=== PATIENT | female | born 1975 | race Caucasian/White ===

== ENCOUNTER → 2016-08-31 | Outpatient (CLI) | payer OTHER ==
--- NOTE | 2016-08-31 14:26 | Diagnostic Imaging Report ---
PROCEDURE: US Abdomen, limited. TECHNIQUE: Multiple realtime grayscale images were obtained over the abdomen in various projections. INDICATION: Right upper quadrant pain. FINDINGS: The visualized portions of the pancreas appear unremarkable. The liver is fairly homogeneous with no focal lesion. There is hepatopetal flow in the portal vein. The gallbladder demonstrate no stones. There is no wall thickening or pericholecystic fluid. Incidental fold is seen near the gallbladder fundus. Sonographic Hernandez sign is reportedly negative. The CBD is obscured by bowel gas. The right kidney is 9.9 CM in length with no hydronephrosis or focal lesion. IMPRESSION: No gallstones or evidence of cholecystitis. Dictated by: Dictated on workstation # [id number]
== END ==
LOC: RAD 13:24
PROVIDERS: ATTEND Nurse Practitioner Family
DX: R74.8 Abnormal levels of other serum enzymes (principal); R10.11 Right upper quadrant pain
CPT/HCPCS: 76705

== ENCOUNTER 2016-10-06 05:32 | Outpatient (CLI) | payer OTHER ==
[~2016-10-06] VITALS: Ht 162.6 cm; Wt 83.5 kg
[2016-10-06] MEDS ORDERED: DEXL60CA PO (10:36)
== END 2016-10-06 10:53 ==
LOC: PREOP 05:32
PROVIDERS: ATTEND Surgery
DX: Z01.818 Encounter for other preprocedural examination (principal); R10.13 Epigastric pain

== ENCOUNTER 2016-10-10 12:19 | Day surgery (SDC) | payer OTHER ==
[~2016-10-10] VITALS: Ht 162.6 cm; Wt 83.5 kg
[~2016-10-10 12:19] MED LIST: DEXL60CA PO
[2016-10-10 12:30] VITALS: BP 131/98
[2016-10-10] MEDS ORDERED: LACTATED RINGERS 1,000 ML IV STA (12:34)
[2016-10-10] MEDS ORDERED: HURRICAINE EXT TUBE (BENZOCAINE) XX PRN (12:45)
--- NOTE | 2016-10-10 13:45 | Progress Note-Pre Operative ---
Pre-Operative Progress Note H&P Reviewed The H&P was reviewed, patient examined and no changes noted. Date Seen by Provider: Oct 10, 2016 Time Seen by Provider: 13:44 Date H&P Reviewed: Oct 10, 2016 Time H&P Reviewed: 13:44 Pre-Operative Diagnosis: gerd epigastric abdominal pain. TOBIAS HELLER DO Oct 10, 2016 1:45 pm
[2016-10-10] MEDS ORDERED: proPOfol 200 MG/20 ML (DIPRIVAN) VIAL IV ONE (14:14)
[2016-10-10] MEDS ORDERED: MIDAZOLAM 2 MG/2 ML (VERSED) VIAL ONE (14:14)
[2016-10-10] MEDS ORDERED: HURRICAINE EXT TUBE (BENZOCAINE) ONE (14:15)
[2016-10-10] MEDS ORDERED: SUCR1TAB36 PO (14:33)
[2016-10-10] MEDS ORDERED: PANT40TA2 PO (14:33)
--- NOTE | 2016-10-10 14:34 | Discharge Inst-Simple/Standard ---
Discharge Inst-Standard Discharge Medications New, Converted or Re-Newed RX: RX on Chart Patient Instructions/Follow Up Plan of Care/Instructions/FU: Follow up with Dr. Munguai in 2 - 3 weeks Take medication as directed. Stop dexilant. Activity as Tolerated: Yes Discharge Diet: No Restrictions CITLALLI BAILEY APRN Oct 10, 2016 14:34
[2016-10-10 14:50] VITALS: BP 116/74
--- NOTE | 2016-10-10 14:50 | Progress Note-Post Operative ---
Post-Operative Progess Note Surgeon (s)/Bulk Mail Technician (s) Surgeon TOBIAS HELLER DO Bulk Mail Technician: na Pre-Operative Diagnosis gerd epigastric abdominal pain. Post-Operative Diagnosis gastritis Procedure & Operative Findings Date of Procedure 10/10/16 Procedure Performed/Findings egd c biopies Anesthesia Type per mda Estimated Blood Loss Estimated blood loss (mL): none Specimens/Packing Specimens Removed antrum and ge junction TOBIAS HELLER DO Oct 10, 2016 2:50 pm
[2016-10-10 15:15] VITALS: BP 128/101
[2016-10-10 15:20] VITALS: BP 128/101
--- NOTE | 2016-10-12 10:10 | OPERATIVE REPORT ---
PROCEDURE PHYSICIAN: TOBIAS HELLER DATE OF PROCEDURE: 10/10/2016 PREOPERATIVE DIAGNOSES: 1. Epigastric abdominal pain. 2. Gastroesophageal reflux disease. POSTOPERATIVE DIAGNOSIS: Gastritis. PROCEDURE: EGD with biopsies. SURGEON: Ezra. ANESTHESIA: Per MDA. ESTIMATED BLOOD LOSS: None. SPECIMENS: 1. Antrum. 2. GE junction. INDICATIONS: The patient is a 41-year-old female who had been having epigastric abdominal pain and gastroesophageal reflux disease. She was placed on Dexilant and did have some improvement. She has not taken it for approximately 2 weeks now though. She was explained risk and benefits of having EGD performed. She understands the risks and benefits and wishes to proceed with the procedure. Consent was signed on the chart. PROCEDURE: The patient was taken to the endoscopy suite, placed in the left lateral recumbent position. Timeout was performed. The scope was inserted into the mouth, down the esophagus, stomach and into the duodenum without difficulty. In the second portion of the duodenum, there were no polyps, masses, or ulcerations. The scope was slowly retracted back in the first portion of the duodenum, there is very slight erythematous changes. The scope was slowly retracted back to the stomach where it was further insufflated demonstrating classic signs of gastritis and erythematous changes. Biopsy of the antrum was obtained. The scope was retroflexed noting no other pathology besides gastritis. There are no other polyps, masses or ulcerations. The scope was returned to its normal position and slowly withdrawn into the distal esophagus. In the distal esophagus at the GE junction, there were some erythematous changes, which biopsy was obtained. The scope was then slowly retracted back noting no other pathology. The patient tolerated the procedure well without any complications. She was taken to the recovery room in stable condition. RECOMMENDATIONS: The patient will need to be on Protonix 40 mg twice a day for 2 weeks and then once per day. She will be placed on Carafate 1 gram 4 times a day. She will follow-up in the office in approximately 3 weeks. If she has worsening conditions, she should be seen at that time; otherwise, follow-up on the scheduled appointment. Job ID: [id number] Dictated Date: 10/10/2016 14:50:28 Paralegal Assistant Date: 10/12/2016 10:01:38 / jed
== END 2016-10-10 15:20 | disposition home or self-care (01) ==
LOC: ENDO 12:19
PROVIDERS: ATTEND Surgery
DX: K29.70 Gastritis, unspecified, without bleeding (principal); F17.210 Nicotine dependence, cigarettes, uncomplicated
CPT/HCPCS: 84703

== ENCOUNTER → 2017-12-17 | Outpatient (CLI) | payer MEDICAID, OTHER ==
[~2017-12-17] MED LIST changes: +CATHETER FLUSH 10 ML SYR IV PRN; +PANT40TA2 PO; +SUCR1TAB36 PO
--- NOTE | 2017-12-17 12:03 | Diagnostic Imaging Report ---
INDICATION: Right upper quadrant pain. TECHNIQUE: Patient was administered 5.0 mCi technetium 99m Choletec intravenously and imaging over the abdomen was performed. At one hour, patient ingested 8 ounces of Ensure and gallbladder ejection fraction was calculated. FINDINGS: There is homogeneous uptake of activity by the liver with prompt excretion of activity into the common duct and gallbladder. Normal passage of activity into the small bowel is seen. Gallbladder ejection fraction is lower limits of normal at 36.5%. IMPRESSION: Normal HIDA scan and gallbladder ejection fraction. Dictated by: Dictated on workstation # [id number]
== END ==
LOC: CARD 09:25
PROVIDERS: ATTEND Nurse Practitioner Family
DX: R10.11 Right upper quadrant pain (principal)
CPT/HCPCS: 78227

== ENCOUNTER 2018-02-27 13:51 | Emergency (ER) | payer MEDICAID ==
[~2018-02-27] VITALS: Ht 162.6 cm; Wt 88.9 kg
[~2018-02-27 13:51] MED LIST changes: -CATHETER FLUSH 10 ML SYR IV PRN
[2018-02-27] MEDS ORDERED: NS IV 1000 ML 1,500 ML IV ONE (15:00)
[2018-02-27] MEDS ORDERED: PIPERACILLIN SODIUM/TAZOBACTAM 4.5 GM in NS (IVPB) 100 ML IV ONE (15:00)
--- NOTE | 2018-02-27 15:03 | ED Abdominal Pain ---
General Chief Complaint: Abdominal/GI Problems Stated Complaint: ABD PAIN Source of Information: Patient, Spouse Exam Limitations: No Limitations History of Present Illness Date Seen by Provider: Feb 27, 2018 Time Seen by Provider: 14:48 Initial Comments Patient presents to ER by private conveyance from the [facility] where she says she presented because she started having abdominal pain in her bilateral lower quadrants right worse than left starting around 12:30 to 1:00 this afternoon. She left work made her at the ER. She says they did not offer her anything for pain nor take any blood or urine and informed her that since they did not have a CT scan her she should sign an AMA form and come to [place] by private conveyance. She says she has a history of the last year having some right upper quadrant tingling, movement and occasional pain that has been extensively worked up with CT scans, ultrasound, HIDA scan and nothing has been found. She has a history of endometriosis and had a laparoscopic surgery for that 18 years ago. She's had 2 C-sections on her abdomen. She still has her gallbladder and appendix intact. She's had normal bowel movements. She' s not taken anything for the pain today. She denies any fever chills present nausea but she did have a little nausea on the ride down here. Discussed the case with Dr. Malhotra in the ER at [facility] and she states that she noted the patient to be in severe distress when she got there writhing in pain and offered to do a workup labs urine pain medicine and plain films of the belly but informed the patient that she will not be able to get a CT scan and if requiring CT scan she would have transfer the patient to another ER. The patient said that they wanted to go somewhere else so she told him that have to sign AMA since she did planned worked him up and treat the patient for her pain so they signed the AMA and left. The provider did call down here and no one answered the phone so she spoke with nursing gas line installer supervisor and left a message about the patient's coming. Allergies and Home Medications Allergies Coded Allergies: No Known Drug Allergies (Unverified , 10/06/16) Home Medications Pantoprazole Sodium 40 Mg Tablet., 40 MG PO DAILY Prescribed by: CITLALLI [facility] on 10/10/16 4553 Sucralfate 1 Gm Tablet, 1 GM PO QID Prescribed by: CITLALLI GOLD on 10/10/16 1433 Patient Home Medication List Home Medication List Reviewed: Yes Review of Systems Review of Systems Constitutional: No chills, No diaphoresis EENTM: No Blurred Vision, No Double Vision Respiratory: Denies Cough, Denies Shortness of Air Cardiovascular: Denies Chest Pain, Denies Edema Gastrointestinal: Denies Abdomen Distended; Abdominal Pain; Denies Constipated , Denies Diarrhea, Denies Nausea, Denies Poor Fluid Intake Genitourinary: Denies Burning, Denies Discharge Musculoskeletal: No back pain, No joint pain Skin: No pruritus, No rash Past Flklcvq-Gmayqs-Regwms Hx Patient Social History Alcohol Use: Denies Use Recreational Drug Use: No Smoking Status: Current Everyday Smoker Type Used: Cigarettes Recent Foreign Travel: No Contact w/Someone Who Travel: No Recent Hopitalizations: No Seasonal Allergies Seasonal Allergies: No Past Medical History Section Reproductive Disorders: No Female Reproductive Disorders: Endometriosis Sexually Transmitted Disease: No HIV/AIDS: No Gastroesophageal Reflux Loss of Vision: Left Hearing Impairment: Denies Leukemia Anxiety, Depression Adverse Reaction/Blood Tranf: No Physical Exam Vital Signs Vital Signs - First Documented 02/27/18 15:00 Temp 97.6 Pulse 95 Resp 18 B/P (MAP) 103/50 (67) Pulse Ox 97 Capillary Refill : Height/Weight/BMI Height: 5'4.00" Weight: 184lbs. 0.0oz. 83.817180ml; 31.6 BMI Method: General Appearance: WD/WN, no apparent distress HEENT: PERRL/EOMI, normal ENT inspection, pharynx normal Neck: non-tender, full range of motion Respiratory: chest non-tender, lungs clear, normal breath sounds, no respiratory distress, no accessory muscle use Cardiovascular: normal peripheral pulses, regular rate, rhythm, no edema Peripheral Pulses: 2+ Radial Pulses (R), 2+ Radial Pulses (L) Gastrointestinal: normal bowel sounds, guarding; No rebound; tenderness (right lower quadrant) Extremities: normal range of motion, non-tender, normal capillary refill Neurologic/Psychiatric: alert, normal mood/affect, oriented x 3 Skin: normal color, warm/dry Focused Exam Lactate Level 02/27/18 15:26: Lactic Acid Level 1.80 Lactic Acid Level Laboratory Tests Test 02/27/18 15:26 Lactic Acid Level 1.80 MMOL/L (0.50-2.00) Progress/Results/Core Measures Results/Orders Lab Results Laboratory Tests Test 02/27/18 15:03 02/27/18 15:12 02/27/18 15:26 Range/Units Urine Color YELLOW Urine Clarity CLEAR Urine pH 6 5-9 Urine Specific [place] 1.025 H 1.016-1.022 Urine Protein 1+ H NEGATIVE Urine Glucose (UA) NEGATIVE NEGATIVE Urine Ketones NEGATIVE NEGATIVE Urine Nitrite NEGATIVE NEGATIVE Urine Bilirubin NEGATIVE NEGATIVE Urine Urobilinogen NORMAL NORMAL MG/DL Urine Leukocyte Esterase NEGATIVE NEGATIVE Urine RBC (Auto) 3+ H NEGATIVE Urine RBC 2-5 H /HPF Urine WBC 0-2 /HPF Urine Squamous Epithelial Cells 5-10 /HPF Urine Crystals NONE /LPF Urine Bacteria TRACE /HPF Urine Casts NONE /LPF Urine Mucus MODERATE H /LPF Urine Culture Indicated NO White Blood Count 16.4 H 4.3-11.0 10^3/uL Red Blood Count 4.83 4.35-5.85 10^6/uL Hemoglobin 14.5 11.5-16.0 G/DL Hematocrit 43 35-52 % Mean Corpuscular Volume 89 80-99 FL Mean Corpuscular Hemoglobin 30 25-34 PG Mean Corpuscular Hemoglobin Concent 34 32-36 G/DL Red Cell Distribution Width 15.7 H 10.0-14.5 % Platelet Count 397 130-400 10^3/uL Mean Platelet Volume 10.1 7.4-10.4 FL Neutrophils (%) (Auto) 67 42-75 % Lymphocytes (%) (Auto) 25 12-44 % Monocytes (%) (Auto) 8 0-12 % Eosinophils (%) (Auto) 1 0-10 % Basophils (%) (Auto) 0 0-10 % Neutrophils # (Auto) 11.0 H 1.8-7.8 X 10^3 Lymphocytes # (Auto) 4.0 1.0-4.0 X 10^3 Monocytes # (Auto) 1.2 H 0.0-1.0 X 10^3 Eosinophils # (Auto) 0.2 0.0-0.3 10^3/uL Basophils # (Auto) 0.1 0.0-0.1 10^3/uL Neutrophils % (Manual) 69 % Lymphocytes % (Manual) 25 % Monocytes % (Manual) 6 % Eosinophils % (Manual) 0 % Basophils % (Manual) 0 % Band Neutrophils 0 % Blood Morphology Comment NORMAL Prothrombin Time 12.0 L 12.2-14.7 SEC INR Comment 0.9 0.8-1.4 Activated Partial Thromboplast Time 27 24-35 SEC Sodium Level 136 135-145 MMOL/L Potassium Level 4.4 3.6-5.0 MMOL/L Chloride Level 102 98-107 MMOL/L Carbon Dioxide Level 22 21-32 MMOL/L Anion Gap 12 5-14 MMOL/L Blood Urea Nitrogen 18 7-18 MG/DL Creatinine 0.75 0.60-1.30 MG/DL Estimat Glomerular Filtration Rate > 60 BUN/Creatinine Ratio 24 Glucose Level 94 70-105 MG/DL Calcium Level 9.6 8.5-10.1 MG/DL Corrected Calcium 9.4 8.5-10.1 MG/DL Total Bilirubin 0.2 0.1-1.0 MG/DL Aspartate Amino Transf (AST/SGOT) 22 5-34 U/L Alanine Aminotransferase (ALT/SGPT) 40 0-55 U/L Alkaline Phosphatase 85 40-136 U/L Total Protein 7.9 6.4-8.2 GM/DL Albumin 4.2 3.2-4.5 GM/DL Lactic Acid Level 1.80 0.50-2.00 MMOL/L My Orders Orders - CINDY PFEIFFER Urinalysis Dipstick Only (02/27/18 14:28) Urine Bedside (02/27/18 14:28) Cbc With Automated Diff (02/27/18 14:57) Comprehensive Metabolic Panel (02/27/18 14:57) Blood Culture (02/27/18 14:57) Sputum Culture (02/27/18 14:57) Urinalysis (02/27/18 14:57) Urine Culture (02/27/18 14:57) Protime With Inr (02/27/18 14:57) Partial Thromboplastin Time (02/27/18 14:57) Chest 1 View, Ap/Pa Only (02/27/18 14:57) Saline Lock/Iv-Start (02/27/18 14:57) Saline Lock/Iv-Start (02/27/18 14:57) Vital Signs Adult Sepsis Patie Q15M (02/27/18 14:57) O2 (02/27/18 14:57) Remove Rings In Anticipation O (02/27/18 14:57) Lactic Acid Analyzer (02/27/18 14:57) Ns Iv 1000 Ml (Sodium Chloride 0.9%) (02/27/18 15:00) Piperacillin Sodium/Tazobactam (Zosyn Vi (02/27/18 15:00) Ketorolac Injection (Toradol Injection) (02/27/18 15:15) Manual Differential (02/27/18 15:12) Ct Abd/Pelv W (Appendicitis) (02/27/18 16:02) Fentanyl Injection (Sublimaze Injection (02/27/18 16:15) Iohexol Injection (Omnipaque 350 Mg/Ml 1 (02/27/18 16:15) Contrast Received (Contrast Received) (02/27/18 16:15) Ns (Ivpb) (Sodium Chloride 0.9%) (02/27/18 16:15) Saline Lock/Iv-Start (02/27/18 16:24) Ns Iv 500 Ml (Sodium Chloride 0.9%) (02/27/18 16:24) Medications Given in ED Current Medications Medications Dose Ordered Sig/Liliana Route Start Time Stop Time Status Last Admin Dose Admin Fentanyl Citrate 25 mcg ONCE ONCE IVP 02/27/18 16:15 02/27/18 16:16 DC 02/27/18 16:26 25 MCG Iohexol 100 ml ONCE ONCE IV 02/27/18 16:15 02/27/18 16:16 DC 02/27/18 16:46 100 ML Ketorolac Tromethamine 30 mg ONCE ONCE IVP 02/27/18 15:15 02/27/18 15:16 DC 02/27/18 15:16 30 MG Piperacillin Sod/ Tazobactam Sod 4.5 gm/Sodium Chloride 100 ml @ 200 mls/hr ONCE ONCE IV 02/27/18 15:00 02/27/18 15:29 DC 02/27/18 16:26 200 MLS/HR Sodium Chloride 250 ml ONCE ONCE IV 02/27/18 16:15 02/27/18 16:16 DC 02/27/18 16:46 80 ML Sodium Chloride 1,500 ml @ 1,500 mls/hr ONCE ONCE IV 02/27/18 15:00 11/28/18 15:59 DC 02/27/18 15:16 1,500 MLS/HR Vital Signs/I&O 02/27/18 15:00 Temp 97.6 Pulse 95 Resp 18 B/P (MAP) 103/50 (67) Pulse Ox 97 Progress Progress Note #1: Time: 15:18 Progress Note Plan to get some labs and urine and start with Toradol. The vital signs are okay except for a mildly elevated tachycardia so we'll start with 20 mils per kilogram fluids and Zosyn in case is no elevated white count. At this point she does not meet enough SIRS criteria. Progress Note #2: Time: 16:25 Progress Note Blood pressure did get down to the 90s after the IV antibiotics. We gave her to start 1500 cc which would be about 20 mL/kg but based on her weight she will get 2500 cc total for 30 mils per kilogram. If she is 196 pounds this nature BMI likely more than 30 and therefore we are well above her ideal body fluid. By the time she got the first 1/2 L in however her blood pressure is already improving to 180 systolic over 45. She is severe sepsis with fluid responsive hypotension. Progress Note #3: Time: 17:58 Progress Note Patient's pain is under control. Her blood pressure still around 102 was 103 systolic when she came in. Did not seem to respond much to the dalila fluid bolus. She is on lisinopril. We'll encourage her not to take it and follow up in the morning with primary care. We will suggest that she may be due to a pelvic ultrasound, pelvic exam, wet prep consider GC chlamydia etc. for possible PID or other secondary differential diagnoses. Diagnostic Imaging Diagonstic Imaging: Xray Plain Films/CT/US/NM/MRI: chest (1v) Comments VIA [facility], [facility]. [place], [place] NAME: LUC ANGUIANO MED REC#: [id number] PT STATUS: REG ER : 1975 PHYSICIAN: CINDY PFEIFFER MD ADMIT DATE: 02/27/18/ER Draft Date of Exam:02/27/18 CHEST 1 VIEW, AP/PA ONLY INDICATION: Chest pain. COMPARISON: No previous study is available for comparison at this time. FINDINGS: Heart size and pulmonary vasculature are within normal limits, and the lungs are clear, bilaterally. IMPRESSION: Unremarkable chest. Dictated on workstation # [id number] Dict: 02/27/18 1552 Trans: 02/27/18 1555 [id number] Interpreted by: DEMARIO GUZMAN MD Electronically signed by: Reviewed: Reviewed by Me Diagonstic Imaging: CT (with contrast) Plain Films/CT/US/NM/MRI: abdomen, pelvis Comments NAME: LUC ANGUIANO MED REC#: [id number] PHYSICIAN: CINDY PFEIFFER MD CC: MITCHELL LOPEZ; CINDY PFEIFFER Page 2 of 2 RADIOLOGY REPORT VIA [facility], [facility]. [place], [place] CC: MITCHELL LOPEZ; CINDY PFEIFFER Page 1 of 2 RADIOLOGY REPORT NAME: LUC ANGUIANO MED REC#: [id number] PT STATUS: REG ER : 1975 PHYSICIAN: CINDY PFIEFFER MD ADMIT DATE: 02/27/18/ER Signed Date of Exam: 02/27/18 CT ABD/PELV W (APPENDICITIS) PROCEDURE: CT abdomen and pelvis with contrast, rule out appendicitis. TECHNIQUE: Multiple contiguous axial images were obtained through the abdomen and pelvis after the administration of intravenous contrast. INDICATION: Generalized abdominal pain in the right lower quadrant. COMPARISON: None. FINDINGS: The lung bases are clear. The gallbladder, solid organs, vascular structures and bowel are grossly unremarkable. There is no mesenteric or retroperitoneal lymphadenopathy. The appendix is normal. The course and caliber of the large and small bowel are normal. Slightly large fibroid uterus is present. The adnexa are otherwise normal. Distal ureters and urinary bladder are normal. There is no hernia. Osseous structures are age-appropriate. IMPRESSION: 1. Fibroid uterus. 2. Normal appendix. 3. The remainder of the abdomen and pelvis is within normal limits. Dictated by: Dictated on workstation # [id number] Dict: 02/27/18 1707 Trans: 02/27/18 1722 Interpreted by: MITCHELL LOPEZ Electronically signed by: MITCHELL LOPEZ 02/27/18 1722 Reviewed: Reviewed by Me Consults : Consulting Physician: VENU DOSHI DO Consults Notes Discussed case lab imaging findings and she thinks the patient looks as good as described it they can follow her up in the clinic in the morning. Departure Impression Primary Impression: Abdominal pain Qualified Codes: R10.31 - Right lower quadrant pain Disposition: HOME, SELF-CARE Condition: Improved Departure-Patient Inst. Decision time for Depature: 18:03 Referrals: [facility] [place] ([place]/Family) Primary Care Physician Patient Instructions: Acute Abdomen (Belly Pain), Adult (DC) Add. Discharge Instructions: Use the Tylenol 1000 mg every 8 hours in addition to ibuprofen 800 mg every 8 hours in addition to tramadol 1 tablet every 6 hours as needed to control your pain. You can also use heat such as warm baths or heating pads. Tomorrow morning call the primary care provider and request an appointment or Sunday. All discharge instructions reviewed with patient and/or family. Voiced understanding. Copy Copies To 1: VENU DOSHI TITUS J Feb 27, 2018 15:03
[2018-02-27 15:10] LABS: BILIRUBIN,URINE NEGATIVE (NEGATIVE); CLARITY,URINE CLEAR; COLOR,URINE YELLOW; GLUCOSE, URINE (UA) NEGATIVE (NEGATIVE); KETONES,URINE NEGATIVE (NEGATIVE); LEUKOCYTE ESTERASE ,URINE NEGATIVE (NEGATIVE); NITRITE,URINE NEGATIVE (NEGATIVE); PH,URINE 6 (5-9); PROTEIN,URINE 1+ (NEGATIVE); UROBILINOGEN,URINE NORMAL (NORMAL)
[2018-02-27] MEDS ORDERED: KETOROLAC 30 MG/ML VIAL IVP ONE (15:15)
[2018-02-27 15:18] LABS: BASOPHILS # (AUTO) 0.1 10^3/uL (0.0-0.1); BASOPHILS % (AUTO) 0 % (0-10); EOSINOPHILS # (AUTO) 0.2 10^3/uL (0.0-0.3); EOSINOPHILS % (AUTO) 1 % (0-10); HEMATOCRIT 43 % (35-52); HEMOGLOBIN 14.5 G/DL (11.5-16.0); LYMPHOCYTES % (AUTO) 25 % (12-44); MEAN CORPUSCULAR HEMOGLOBIN 30 PG (25-34); MEAN CORPUSCULAR HGB CONC 34 G/DL (32-36); MEAN CORPUSCULAR VOLUME 89 FL (80-99); MEAN PLATELET VOLUME 10.1 FL (7.4-10.4); MONOCYTES # (AUTO) 1.2 X 10^3 (0.0-1.0); MONOCYTES % (AUTO) 8 % (0-12); NEUTROPHILS % (AUTO) 67 % (42-75); PLATELET COUNT 397 10^3/uL (130-400); RED BLOOD COUNT 4.83 10^6/uL (4.35-5.85); RED CELL DISTRIBUTION WIDTH 15.7 % (10.0-14.5); WHITE BLOOD COUNT 16.4 10^3/uL (4.3-11.0)
[2018-02-27 15:34] LABS: INR 0.9 (0.8-1.4)
[2018-02-27 15:34] LABS: BACTERIA,URINE TRACE /HPF; WBC,URINE 0-2 /HPF
[2018-02-27 15:37] LABS: ALANINE AMINOTRANSFERASE 40 U/L (0-55); ALBUMIN 4.2 GM/DL (3.2-4.5); ALKALINE PHOSPHATASE 85 U/L (40-136); BILIRUBIN,TOTAL 0.2 MG/DL (0.1-1.0); BUN/CREATININE RATIO 24; CALCIUM 9.6 MG/DL (8.5-10.1); CARBON DIOXIDE 22 MMOL/L (21-32); CHLORIDE 102 MMOL/L (98-107); CREATININE SERUM 0.75 MG/DL (0.60-1.30); GFR ESTIMATED > 60; GLUCOSE 94 MG/DL (70-105); POTASSIUM 4.4 MMOL/L (3.6-5.0); SODIUM 136 MMOL/L (135-145); TOTAL PROTEIN 7.9 GM/DL (6.4-8.2)
[2018-02-27 15:49] LABS: BAND NEUTROPHILS 0 %; BASOPHILS % (MANUAL) 0 %; EOSINOPHILS % (MANUAL) 0 %; LYMPHOCYTES % (MANUAL) 25 %; MONOCYTES % (MANUAL) 6 %; NEUTROPHILS % (MANUAL) 69 %; RBC MORPH NORMAL
--- NOTE | 2018-02-27 15:55 | Diagnostic Imaging Report ---
INDICATION: Chest pain. COMPARISON: No previous study is available for comparison at this time. FINDINGS: Heart size and pulmonary vasculature are within normal limits, and the lungs are clear, bilaterally. IMPRESSION: Unremarkable chest. Dictated by: Dictated on workstation # [id number]
[2018-02-27] MEDS ORDERED: RECEIVED CONTRAST (Hold Metformin) IV SCH (16:15)
[2018-02-27] MEDS ORDERED: fentaNYL INJECTION 100 MCG/2 ML AMP IVP ONE (16:15)
[2018-02-27] MEDS ORDERED: IOHEXOL 350 MG/ML 100 ML (OMNIPAQUE 350) VIAL IV ONE (16:15)
[2018-02-27] MEDS ORDERED: NS 250 ML (IVPB) BAG IV ONE (16:15)
[2018-02-27] MEDS ORDERED: NS IV 500 ML 500 ML IV ONE (16:24)
--- NOTE | 2018-02-27 17:17 | Diagnostic Imaging Report ---
PROCEDURE: CT abdomen and pelvis with contrast, rule out appendicitis. TECHNIQUE: Multiple contiguous axial images were obtained through the abdomen and pelvis after the administration of intravenous contrast. INDICATION: Generalized abdominal pain in the right lower quadrant. COMPARISON: None. FINDINGS: The lung bases are clear. The gallbladder, solid organs, vascular structures and bowel are grossly unremarkable. There is no mesenteric or retroperitoneal lymphadenopathy. The appendix is normal. The course and caliber of the large and small bowel are normal. Slightly large fibroid uterus is present. The adnexa are otherwise normal. Distal ureters and urinary bladder are normal. There is no hernia. Osseous structures are age-appropriate. IMPRESSION: 1. Fibroid uterus. 2. Normal appendix. 3. The remainder of the abdomen and pelvis is within normal limits. Dictated by: Dictated on workstation # [id number]
[2018-02-27] MEDS ORDERED: TRAM50TA2 PO (18:14)
[2018-02-27 18:15] VITALS: BP 100/49
== END 2018-02-27 18:15 | disposition home or self-care (01) ==
LOC: EDUNIT# 13:51 → ER 13:53
DX: R10.31 Right lower quadrant pain (principal); R10.32 Left lower quadrant pain; R07.9 Chest pain, unspecified; K21.9 Gastro-esophageal reflux disease without esophagitis; F41.9 Anxiety disorder, unspecified; F32.9 Major depressive disorder, single episode, unspecified; F17.210 Nicotine dependence, cigarettes, uncomplicated; Z87.448 Personal history of other diseases of urinary system; Z98.890 Other specified postprocedural states; Z85.6 Personal history of leukemia
CPT/HCPCS: 36415; 71045; 74177; 80053; 81000; 83605; 84703; 85007; 85027; 85610; 85730; 87040; 96361; 96365; 96375

== ENCOUNTER 2018-04-29 09:31 | Outpatient (CLI) | payer MEDICAID ==
[~2018-04-29] VITALS: Ht 162.6 cm; Wt 90.0 kg
[~2018-04-29 09:31] MED LIST changes: +TRAM50TA2 PO
[2018-04-29] MEDS ORDERED: HYDR-700 PO (09:43)
[2018-04-29] MEDS ORDERED: SERT50TA2 PO (09:43)
[2018-04-29] MEDS ORDERED: CYCL10TA9 PO (09:43)
[2018-04-29 09:49] VITALS: BP 140/83
[2018-04-29 10:33] LABS: BASOPHILS # (AUTO) 0.1 10^3/uL (0.0-0.1); BASOPHILS % (AUTO) 1 % (0-10); EOSINOPHILS # (AUTO) 0.2 10^3/uL (0.0-0.3); EOSINOPHILS % (AUTO) 3 % (0-10); HEMATOCRIT 46 % (35-52); HEMOGLOBIN 15.2 G/DL (11.5-16.0); LYMPHOCYTES # (AUTO) 2.6 X 10^3 (1.0-4.0); LYMPHOCYTES % (AUTO) 31 % (12-44); MEAN CORPUSCULAR HEMOGLOBIN 30 PG (25-34); MEAN CORPUSCULAR HGB CONC 33 G/DL (32-36); MEAN CORPUSCULAR VOLUME 90 FL (80-99); MONOCYTES # (AUTO) 0.7 X 10^3 (0.0-1.0); MONOCYTES % (AUTO) 8 % (0-12); NEUTROPHILS # (AUTO) 4.9 X 10^3 (1.8-7.8); NEUTROPHILS % (AUTO) 58 % (42-75); PLATELET COUNT 351 10^3/uL (130-400); RED CELL DISTRIBUTION WIDTH 15.1 % (10.0-14.5); WHITE BLOOD COUNT 8.5 10^3/uL (4.3-11.0)
== END 2018-04-29 14:53 | disposition home or self-care (01) ==
LOC: PREOP 09:31
PROVIDERS: ATTEND Obstetrics & Gynecology
DX: Z01.812 Encounter for preprocedural laboratory examination (principal); Z11.2 Encounter for screening for other bacterial diseases; R10.2 Pelvic and perineal pain; N92.0 Excessive and frequent menstruation with regular cycle; D25.9 Leiomyoma of uterus, unspecified
CPT/HCPCS: 36415; 85025; 86850; 86900; 86901; 87081

== ENCOUNTER 2018-05-02 09:15 | Day surgery (SDC) | payer MEDICAID ==
[~2018-05-02] VITALS: Ht 162.6 cm; Wt 90.0 kg
[~2018-05-02 09:15] MED LIST changes: +CYCL10TA9 PO; +HYDR-700 PO; +SERT50TA2 PO
[2018-05-02 09:30] VITALS: BP 133/85
[2018-05-02] MEDS ORDERED: metroNIDAZOLE 500MG/100ML IVPB 100 ML IV ONE (09:30)
[2018-05-02] MEDS ORDERED: ceFAZolin 2 GM IV Premixed 50 ML IV ONE (09:30)
[2018-05-02] MEDS: LACTATED RINGERS 1,000 ML IV SCH ×5 (09:35→17:06)
[2018-05-02] MEDS ORDERED: BUPIVACAINE 0.25% 30 ML (SENSORCAINE) VIAL ONE (09:52)
[2018-05-02] MEDS ORDERED: ONDANSETRON 4 MG/2 ML (SDV) Z0FRAN IV PRN (10:00)
[2018-05-02] MEDS ORDERED: ZOLPIDEM 5 MG (AMBIEN) TAB PO PRN (10:00)
[2018-05-02] MEDS ORDERED: DOCUSATE SODIUM 100 MG (COLACE) CAP PO PRN (10:00)
[2018-05-02] MEDS ORDERED: CHLORASEPTIC LOZENGE MM PRN (10:00)
[2018-05-02] MEDS ORDERED: KETOROLAC 30 MG/ML VIAL IV PRN (10:00)
[2018-05-02] MEDS ORDERED: ANTACID SUSP 30 ML UDC (MYLANTA) PO PRN (10:00)
[2018-05-02] MEDS ORDERED: HYDROcodone/APAP 7.5 MG/325 MG (LORTAB, LORCET PLUS) TABLET PO PRN (10:00)
[2018-05-02] MEDS ORDERED: SIMETHICONE 80 MG (MYLICON) CHEW PO PRN (10:00)
--- NOTE | 2018-05-02 10:00 | Progress Note-Pre Operative ---
Pre-Operative Progress Note H&P Reviewed The H&P was reviewed, patient examined and no changes noted. Date Seen by Provider: May 02, 2018 Time Seen by Provider: 09:40 Date H&P Reviewed: May 02, 2018 Time H&P Reviewed: 08:45 Pre-Operative Diagnosis: CPP, Endometriosis, Fibroid uterus, Obesity CHRISTOPHER LOVELACE DO May 02, 2018 10:00 am
--- NOTE | 2018-05-02 10:01 | Discharge Inst-Women's Service ---
Discharge Inst-Women's Serv Depart Medication/Instructions New, Converted or Re-Newed RX: RX on Chart Consults/Follow Up Additional Follow Up: Yes Orders/Referrals Dr. Tellez in 7-10 days and in 8 weeks Activity Activity: Activity as Tolerated Driving Instructions: No Driving for 1 Week NO SMOKING: NO SMOKING Nothing Inside Vagina: No Douching, No [place], No Tampons Diet Discharge Diet: No Restrictions Symptoms to Report to : Bleeding Excessive, Pain Increased, Fever Over 101 Degrees F, Vaginal Bleeding Increase, Questions/Concerns For Any Problems or Questions: Contact Your Physician Skin/Wound Care Infection Signs and Symptoms: Increased Redness, Foul Odor of Wound, Increased Drainage, Skin Itchy or Has a Rash, Increased Swelling, Temperature Above 101 F Operative Area Clean and Dry: Keep Incision Clean/Dry Stitches/Crystal/Dermabond: Dermabond, Care of Stitches Bathing Instructions: CHRISTOPHER Felder DO May 02, 2018 10:01 am
[2018-05-02] MEDS ORDERED: IBUP-844 PO (10:03)
[2018-05-02] MEDS ORDERED: SIME80TA16 PO (10:03)
[2018-05-02] MEDS ORDERED: DOCU100C37 PO (10:03)
[2018-05-02] MEDS ORDERED: HYDR-34 PO (10:03)
[2018-05-02] MEDS: LACTATED RINGERS 1,000 ML IV PRN ×2 (10:25→12:30)
[2018-05-02] MEDS ORDERED: MIDAZOLAM 2 MG/2 ML (VERSED) VIAL ONE (10:28)
[2018-05-02] MEDS ORDERED: MIDAZOLAM 2 MG/2 ML (VERSED) VIAL IV ONE (10:30)
[2018-05-02] MEDS ORDERED: proPOfol 200 MG/20 ML (DIPRIVAN) VIAL IV ONE (10:49)
[2018-05-02] MEDS ORDERED: ONDANSETRON 4 MG/2 ML (SDV) Z0FRAN ONE (10:49)
[2018-05-02] MEDS ORDERED: LIDOCAINE PF 2% 5 ML (XYLOCAINE) VIAL ONE (10:49)
[2018-05-02] MEDS ORDERED: fentaNYL INJECTION 100 MCG/2 ML AMP ONE (10:51)
[2018-05-02] MEDS ORDERED: DEXAMETHASONE 10 MG/ML (DECADRON) 1 ML VIAL ONE (11:23)
[2018-05-02] MEDS ORDERED: NEOSTIGMINE 1 MG/ML 5 ML SYRINGE ONE (12:32)
[2018-05-02] MEDS ORDERED: LACTATED RINGERS 500 ML IV ONE (12:32)
[2018-05-02] MEDS ORDERED: GLYCOPYRROLATE 0.2 MG/ML (ROBINUL) 2 ML VIAL ONE (12:32)
[2018-05-02] MEDS ORDERED: ROCURONIUM 10 MG/ML 5 ML SYRINGE IV ONE (12:32)
[2018-05-02] MEDS ORDERED: morphine INJ 10 MG/ML 1ML (SYR OR VIAL) ONE (13:05)
[2018-05-02] MEDS ORDERED: KETOROLAC 30 MG/ML VIAL ONE (13:05)
[2018-05-02] MEDS ORDERED: ONDANSETRON 4 MG/2 ML (SDV) Z0FRAN IVP PRN (13:15)
[2018-05-02] MEDS ORDERED: HYDROmorphone 2 MG/ML VIAL (DILAUDID) IV ONE (13:15)
[2018-05-02] MEDS ORDERED: morphine INJ 10 MG/ML 1ML (SYR OR VIAL) IVP ONE (13:15)
--- NOTE | 2018-05-02 14:00 | NUR ---
pt transferred to room 304 via bed with PACU staff @ side. pt alert, talking. vs taken. report received from ALISSA Solis. care assumed of pt.
[2018-05-02 14:03] VITALS: BP 121/85
--- NOTE | 2018-05-02 14:30 | NUR ---
initial assessment completed, see interventions for further. abd lapsites x3 noted. D/I with band-aids covering. stone to DD with clear, yellow urine noted in chamber. v-pad in place, no drainage noted. IV site patent. call light within reach.
--- NOTE | 2018-05-02 16:55 | NUR ---
bertha DC'd per 's orders. 550cc clear, yellow urine noted. meghan-care offered. v-pad in place.
--- NOTE | 2018-05-02 17:45 | NUR ---
assisted up to BR. voided 100cc urine without difficulty. meghan-care offered.
--- NOTE | 2018-05-02 17:50 | NUR ---
IV converted to HL
[2018-05-02 18:00] VITALS: BP 157/70
--- NOTE | 2018-05-02 18:12 | NUR ---
here. dismissal orders received.
[2018-05-02] MEDS ORDERED: guaiFENesin (MUCINEX) 600 MG TAB PO ONE (19:18)
[2018-05-02] MEDS ORDERED: IBUPROFEN 600 MG (MOTRIN) TAB PO ONE (19:19)
--- NOTE | 2018-05-02 19:20 | NUR ---
IV site dc'd. dismissal instructions given, verbalizes understanding. reviewed home medications. instructed pt to call Dr's office to schedule follow up appointments. signature page signed, placed on chart.
--- NOTE | 2018-05-02 19:23 | NUR ---
Motrin 600mg p.o given per pt's request prior to dismissal.
--- NOTE | 2018-05-02 19:28 | NUR ---
pt ambulated to room 315 to visit sister prior to dismissal.
--- NOTE | 2018-05-02 19:35 | NUR ---
pt ambulated to private vehicle with this RN @ side. pt stable with no sx's of distress noted.
--- NOTE | 2018-05-02 20:46 | OPERATIVE REPORT ---
DATE OF SERVICE: PREOPERATIVE DIAGNOSES: 1. A 43-year-old female with chronic pelvic pain. 2. Endometriosis. 3. Fibroid uterus. 4. Obesity, BMI 34. POSTOPERATIVE DIAGNOSES: 1. A 43-year-old female with chronic pelvic pain. 2. Endometriosis. 3. Fibroid uterus. 4. Obesity, BMI 34. 5. Bilateral dilation of fallopian tube, suspicious for hydrosalpinx. SURGEON: Robbie Tellez DO. PROCEDURE: Robotic-assisted total laparoscopic hysterectomy with bilateral salpingectomy. CUSTOMER RELATIONS SPECIALIST: DUKE Sanches ANESTHESIA: General endotracheal. ESTIMATED BLOOD LOSS: Minimal. URINE OUTPUT: 200 mL clear at the end of the procedure. FLUIDS: 2 liters of lactated Ringer solution. FINDINGS: A bulky enlarged uterus with palpable fibroid within, grossly normal bilateral appearing ovaries with dilation of bilateral fallopian tubes and evidence of previous tubal ligation. SPECIMEN SENT: Uterus, bilateral fallopian tubes. INDICATIONS FOR PROCEDURE: This 43-year-old female was a consultation to me for ongoing issues of chronic pelvic pain. She had tried more conservative measures in the past and been told there was likely endometriosis as causing her pain. She was seeking definitive measures due to the significant amount of pain. She was having as well as this ongoing monitoring of fibroid that she is having to do, which was associated with irregular heavy periods. We discussed alternatives; however, in the office, she wished to go forward with more definitive measures risk of hysterectomy was discussed with the patient in detail including risk of bleeding, infection, damage to surrounding structures including but not limited to bowel, bladder, ureter, kidneys, possible need for reoperation, possible postoperative complications, postoperative recovery timeframe, risk from anesthesia, possible need for blood transfusion and even . After everything was discussed with the patient, consent was obtained in the preoperative area and the patient was taken to the operating room. OPERATIVE REPORT IN DETAIL: Once in the operating room, general anesthesia was found to be adequate. She was placed in the dorsal lithotomy position, prepped and draped in normal sterile fashion. A Almonte catheter was placed in sterile technique. A timeout was performed. I then placed a weighted speculum in the patient's vagina. A right angle retractor was used to visualize the cervix used to visualize the cervix, which was grasped at 12 o'clock position using a long Allis clamp. I then placed an 0 Vicryl suture through the anterior lip of the cervix and used this as my retraction point removing the Allis clamp. I then gently sound the uterine cavity depth was found to be 8 cm. I then gently dilated the cervix using Hegar dilators to a maximum dilatation of approximately 5 to 6 mm. This allows me to place an 8 cm Sheila uterine manipulator tip within the endometrial cavity as well as deploy and 3.5 cm colpotomy ring around the vaginal fornix. Once this was in place, excellent manipulation is noted on bimanual. I then removed all the other instruments from the patient's vagina. I performed changed gloves and my attention to the abdomen where infraumbilically I infiltrated this area using 0.25% Marcaine. I make an 8 mm incision and directed through this incision, a Veress needle to enter correct placement confirmed using a saline drop test. I then proceeded with insufflation using CO2 gas and opening pressure 4 mmHg was noted. I proceeded to maximum pressure of 15 mmHg, at which point I removed the Veress needle and introduced an 8 mm blunt da Reynaldo camera trocar. Once this was in place, I am able to confirm intraperitoneal placement using the da Reynaldo laparoscope. I then had the patient placed in steep Trendelenburg after briefly scanning the upper abdominal anatomy and noting no gross abnormalities, nor any evidence of damage upon entry. Once in steep Trendelenburg, I am able to visualize all my findings as described above. I placed two 8 mm trocars approximately 8 cm lateral to my infraumbilical trocar under direct visualization of the laparoscope. Once these were both placed, I bring in the da Reynaldo robot and docked in the appropriate fashion. Using the vessel sealer on the left hand and monopolar rafa in the right hand, I performed the following dissection bilaterally. I grasped the uteroovarian ligament, bipolar cauterized and transected using the vessel sealer. I then created a window in the mesosalpinx taken this laterally amputating the fallopian tube from its surrounding blood supply. I then grasped the round ligament, bipolar cauterized this and transected using the vessel sealer. I then grasped the entire broad ligament using the vessel sealer bipolar cauterized and transected down to the level of the lower uterine segment, at which point I the anterior and posterior leaflets. The anterior leaflet dissection was taken to the anterior vaginal fornix. The posterior leaflet was taken around to the posterior vaginal fornix. This allows me skeletonized the uterine vessels laterally and to stay clear in my dissection of the ureter. Once the uterine vessels were skeletonized and bipolar cauterized and transected using the vessel sealer. I then created a colpotomy at 12 o'clock position using monopolar rafa and took this circumferentially around the vaginal fornix, amputating the cervix away from the vaginal fornix. The entire specimen was then removed through the vagina. I then proceeded with reapproximated the vaginal cuff using 2-0 Vicryl suture in a [id number] fashion and the lateral vaginal apices colposuspending it to the uterosacral ligament. I then closed the remainder of the vaginal cuff using 2-0 V-Loc in a running fashion, after which there was no active bleeding noted from any of my dissection planes. I then undocked the da Reynaldo robot and take over the remainder of the case laparoscopically. I copiously irrigated the pelvis using normal saline. Once again, there was no active bleeding noted from any of my dissection planes. I placed Surgiflo overall my planes of dissection to ensure excellent postoperative hemostasis. The patient was taken out of steep Trendelenburg. We removed the lateral trocars under direct visualization of the laparoscope. The infraumbilical trocar was left in place to release insufflation and to introduce 10 mL of 0.25% Marcaine in the peritoneal cavity for postoperative pain management. Once this is removed, we closed the skin using 4-0 Monocryl in interrupted subcuticular stitches. Dermabond was applied to the incision and Band-Aids were placed over these. Almonte catheter was left in place. All other instruments were removed from the patient's vagina. Lap and sponge counts were correct at the end of the procedure. Instrument count was correct as well. Two grams of Ancef and 500 mg of Flagyl were given preoperatively for infection prophylaxis. Job ID: [id number] DocumentID: [id number] Dictated Date: 05/02/2018 13:03:29 Senior Teller Date: 05/02/2018 20:45:30 Dictated By: DO CARLY FUENTES
[2018-05-03] MEDS ORDERED: IBUPROFEN 600 MG (MOTRIN) TAB PO PRN (02:45)
== END 2018-05-02 19:35 | disposition home or self-care (01) ==
LOC: SDC 09:15 → WS 14:00 → SDC 19:35
PROVIDERS: ATTEND Obstetrics & Gynecology
DX: N92.0 Excessive and frequent menstruation with regular cycle (principal); N80.0 Endometriosis of uterus; D25.0 Submucous leiomyoma of uterus; D25.1 Intramural leiomyoma of uterus; N70.11 Chronic salpingitis; N83.8 Other noninflammatory disorders of ovary, fallopian tube and broad ligament; I10 Essential (primary) hypertension; F17.210 Nicotine dependence, cigarettes, uncomplicated; K21.9 Gastro-esophageal reflux disease without esophagitis; F32.9 Major depressive disorder, single episode, unspecified; F41.9 Anxiety disorder, unspecified; E66.9 Obesity, unspecified; Z68.34 Body mass index [BMI] 34.0-34.9, adult; Z79.899 Other long term (current) drug therapy
CPT/HCPCS: 84703; 86850; 86900; 86901; 88307; 94664

== ENCOUNTER → 2020-11-18 | Outpatient (CLI) | payer MEDICAID ==
[~2020-11-18] MED LIST changes: +DOCU100C37 PO; +HYDR-34 PO; +IBUP-844 PO; +SIME80TA16 PO; -TRAM50TA2 PO; +TRM50T PO
--- NOTE | 2020-11-18 15:34 | Diagnostic Imaging Report ---
PROCEDURE: US left lower extremity venous. TECHNIQUE: Multiple real-time grayscale images were obtained over the left lower extremity in various projections. Additional duplex Doppler and color Doppler images were also obtained. INDICATION: Left calf pain. FINDINGS: There is no evidence of left lower extremity DVT. Left lower extremity deep venous system shows normal compressibility with normal response to augmentation and Valsalva. No fluid collection or mass is detected. IMPRESSION: No evidence of left lower extremity DVT. Dictated by: Dictated on workstation # [id number]
== END ==
LOC: RAD FS 13:50
PROVIDERS: ATTEND Allergy & Immunology
DX: M79.662 Pain in left lower leg (principal)

== ENCOUNTER 2021-02-02 09:33 | Day surgery (SDC) | payer MEDICAID ==
[2021-02-02] VITALS (9 sets, daily range): BP systolic 125–142; BP diastolic 74–99
[~2021-02-02] VITALS: Ht 162 cm; Wt 87.1 kg
[~2021-02-02 09:33] MED LIST changes: +ATOR20TA49 PO
[2021-02-02] MEDS ORDERED: ceFAZolin 2 GM IV Premixed 50 ML IV ONE (10:15)
[2021-02-02] MEDS: LACTATED RINGERS 1,000 ML IV PRN ×2 (10:34→12:50)
--- NOTE | 2021-02-02 11:40 | Progress Note-Pre Operative ---
Pre-Operative Progress Note H&P Reviewed The H&P was reviewed, patient examined and no changes noted. Time Seen by Provider: 11:36 Date H&P Reviewed: Feb 02, 2021 Time H&P Reviewed: 11:36 Pre-Operative Diagnosis: right arm melanoma, site marked JAYDEN HERNANDEZ DO Feb 02, 2021 11:40
[2021-02-02] MEDS ORDERED: MIDAZOLAM 2 MG/2 ML (VERSED) VIAL IV ONE (12:00)
[2021-02-02] MEDS ORDERED: LIDOCAINE/EPI 1%-1:100,000 (XYLOCAINE) 20ML ONE (12:01)
[2021-02-02] MEDS ORDERED: MIDAZOLAM 2 MG/2 ML (VERSED) VIAL ONE (12:02)
[2021-02-02] MEDS ORDERED: proPOfol 200 MG/20 ML (DIPRIVAN) VIAL IV ONE (12:24)
[2021-02-02] MEDS ORDERED: fentaNYL INJ 100 MCG/2 ML AMP ONE (12:24)
[2021-02-02] MEDS ORDERED: LIDOCAINE PF 2% 5 ML (XYLOCAINE) VIAL ONE (12:24)
[2021-02-02] MEDS ORDERED: ONDANSETRON 4 MG/2 ML (SDV) Z0FRAN ONE (12:24)
[2021-02-02] MEDS ORDERED: SEVOFLURANE (ULTANE) 15 ML INHAL SOLN ONE (13:11)
--- NOTE | 2021-02-02 13:16 | Progress Note-Post Operative ---
Post-Operative Progess Note Surgeon (s)/High School Foreign Language Tutor (s) Surgeon JAYDEN HERNANDEZ DO High School Foreign Language Tutor: АННА Hanna Pre-Operative Diagnosis right arm melanoma, site marked Post-Operative Diagnosis same pending path Procedure & Operative Findings Date of Procedure 02/02/21 Procedure Performed/Findings Wide excision of Melanoma, 4.1 x 1.2 cm Anesthesia Type LMA Estimated Blood Loss Estimated blood loss (mL): scant Specimens/Packing Specimens Removed right arm skin, previous site of melanoma JAYDEN HERNANDEZ DO Feb 02, 2021 13:16
[2021-02-02] MEDS ORDERED: ACHD5005 PO (13:17)
--- NOTE | 2021-02-02 13:18 | Discharge Inst-Surgical ---
Discharge Inst-Surgical Depart Medication/Instructions New, Converted or Re-Newed RX: Transmitted to Pharmacy Patient Instructions Follow up Appt: Make appointment for 1 week. [phone] Instructions: No lifting greater than 20 pounds. No strenuous activity. May shower in 24 hours, no tub bath or soaking. Use incentive spirometer at home as directed. No Smoking Skin/Wound Care: May remove bandages in am. You need to leave the Dermabond on incision it will fall off on it's own. Symptoms to Report: Appetite Changes, Extremity Discoloration, Numbness/Tingling, Swelling Increased, Bleeding Excessive, Eyesight Changes, Pain Increased, Urine Color Change, Constipation(Persistent), Fever over 101 degree F, Pain/Pressure in chest, Urinating Difficulty, Cough Up/Vomit Blood, Heart Beat Irreg/Pounding, Pain/Pressure in jaw, Cramps in feet or legs, Lightheadedness, Pain/Pressure in shoulder, Diarrhea(Persistent), Memory Changes Suddenly, Questions/Concerns, Weight gain consecutive days, Dizziness/Fainting, Nausea/Vomiting, Shortness of Breath, Weight gain over 2 pounds If questions or concerns contact your physician Or seek help at emergency department. Activity Activity as Tolerated: Yes Activity Instructions: Avoid Stress to Incision Diet Discharge Diet: No Restrictions Diet After 24 Hours: Clear Liquid if Nauseous If Any Problems/Questions/Issu: Contact Your Physician, Go to Emergency Room Skin/Wound Care Infection Signs and Symptoms: Increased Redness, Foul Odor of Wound, Increased Drainage, Skin Itchy or Has a Rash, Increased Swelling, Temperature Above 101 F Bathing Instructions: Shower Stitches/Crystal/Dermabond Dis: JAYDEN San DO Feb 02, 2021 13:18
--- NOTE | 2021-02-02 14:54 | Anesthesia-General Post-Op ---
General Patient Condition Mental Status/LOC: Same as Preop Cardiovascular: Satisfactory Nausea/Vomiting: Absent Respiratory: Satisfactory Pain: Controlled Complications: Absent Post Op Complications Complications None Follow Up Care/Instructions Patient Instructions None needed. Anesthesia/Patient Condition Patient Condition Patient is doing well, no complaints, stable vital signs, no apparent adverse anesthesia problems. No complications reported per nursing. ABIGAIL PHIPPS CRNA Feb 02, 2021 14:54
--- NOTE | 2021-02-03 04:32 | OPERATIVE REPORT ---
DATE OF SERVICE: 02/02/2021 PREOPERATIVE DIAGNOSIS: Melanoma of right upper arm with positive margins. POSTOPERATIVE DIAGNOSIS: Melanoma. PROCEDURE: Wide excision of melanoma, measuring 4.4 x 1.1 cm. SURGEON: Jt Kern DO BELLMAN CAPTAIN: Tyler Figueroa MS3. ANESTHESIA: LMA. SPECIMEN: Right upper arm mass. BLOOD LOSS: Scant. FLUIDS: Per anesthesia. POSTOPERATIVE CONDITION: Stable. INDICATION FOR PROCEDURE: The patient is a 45-year-old female, who had a mole removed on the right upper arm right above the bicep turned out to be a melanoma. Margins were positive, not clear enough for this melanoma in situ. She needed 3 mm margins. FINDINGS: The patient had a wider excision of this area measuring 4.1 cm long x 1.1 cm wide going around the previous incision to get good margins, long suture lateral, short suture superior, sent to pathology. PROCEDURE NOTE: After informed consent was obtained, the site was marked prior to taking the patient back, agreed on during timeout. The area was sterilely prepped and draped in normal fashion. Local lidocaine was used to infiltrate the area around the previous incision, had drawn elliptical area on to going around the previous incision measured about 4.1 x 1.1 cm, infiltrated with local, made an incision with #15 blade, carried down through the skin into subcutaneous tissue, then deepened down to subcutaneous tissue with Bovie electrocautery, going under this into the subcutaneous fat and then undermining superiorly and inferiorly to be able to bring this together. Copiously irrigated the incision. Obtained the hemostasis using Bovie electrocautery. Then, closing the incision with 3-0 Vicryl 3 interrupted subcutaneous stitches and then closed the skin with 4-0 undyed Monocryl 4 interrupted subcuticular stitches. Area was cleaned and dried. Dermabond placed as well as dressing. The patient tolerated the procedure. She was transferred to recovery room in stable condition. Sponge, instrument and needle count correct at the end of the case. Job ID: [id number] DocumentID: [id number] Dictated Date: 02/02/2021 20:10:40 Statistical Typist Date: 02/03/2021 04:30:33 Dictated By: JT KERN DO
== END 2021-02-02 15:00 | disposition home or self-care (01) ==
LOC: SDC 09:33
PROVIDERS: ATTEND Surgery
DX: C43.61 Malignant melanoma of right upper limb, including shoulder (principal); E78.00 Pure hypercholesterolemia, unspecified; I10 Essential (primary) hypertension; E78.5 Hyperlipidemia, unspecified; F17.210 Nicotine dependence, cigarettes, uncomplicated; F41.9 Anxiety disorder, unspecified; Z85.6 Personal history of leukemia; Z79.899 Other long term (current) drug therapy; Z82.49 Family history of ischemic heart disease and other diseases of the circulatory system; Z83.3 Family history of diabetes mellitus; Z80.9 Family history of malignant neoplasm, unspecified
CPT/HCPCS: 87081

== ENCOUNTER → 2021-09-08 | Outpatient (CLI) | payer MEDICAID ==
[~2021-09-08] MED LIST changes: +ACHD5005 PO; +CYCL10TA25 PO; -CYCL10TA9 PO
== END ==
LOC: CARDFS 11:49
PROVIDERS: ATTEND Internal Medicine Cardiovascular Disease
DX: I10 Essential (primary) hypertension (principal); I25.10 Atherosclerotic heart disease of native coronary artery without angina pectoris
CPT/HCPCS: 93306

== ENCOUNTER → 2021-09-21 | Outpatient (CLI) | payer MEDICAID ==
[~2021-09-21] VITALS: Ht 162 cm; Wt 86.0 kg
[~2021-09-21] MED LIST changes: +CATHETER FLUSH 10 ML SYR IVP PRN
[2021-09-21 09:42] VITALS: BP 132/99
--- NOTE | 2021-09-21 15:35 | Cardiology Stress Test Report ---
Stress Test Report Date of Procedure/Referring: Date of Procedure: Sep 21, [address] Elli Seymour Admitting Physician Admitting Physician: Attending Physician: Dia Her MD Indications: HTN Baseline Heart Rate: 76 Baseline Blood Pressure: Blood Pressure Systolic: 132 Blood Pressure Diastolic: 99 Vital Signs Date Time Temp Pulse Resp B/P (MAP) Pulse Ox O2 Delivery O2 Flow Rate FiO2 09/21/21 09:42 91 20 132/99 (110) 97 Room Air Baseline Vital Signs Vital Signs Date Time Temp Pulse Resp B/P (MAP) Pulse Ox O2 Delivery O2 Flow Rate FiO2 09/21/21 09:42 91 20 132/99 (110) 97 Room Air Baseline EKG: Baseline EKG: NSR Summary: After explaining the procedure and details to the patient, she signed the consent and was brought to the stress nuclear laboratory. Patient exercised on standard Manny protocol, EKG, heart rate and blood pressure were monitored continuously, resting and stress doses of radio tracer were injected, imaging was acquired and reviewed in the short axis, horizontal long axis and vertical long axis views Patient was able to exercise for a total of 9 minutes on Manny protocol, METs 10.5 Maximum heart rate 151 Maximum blood pressure 205/111 Stress EKG, Minimal nondiagnostic changes Recovery EKG, Return to baseline TID: 1.08 SSS: 1 SDS: 1 EF: 50 Conclusion: 1. Good exercise tolerance for a total of 9 minutes on standard Manny protocol, 10.5 METS achieving 87% of maximal expected heart rate 2. Appropriate heart rate response to exercise with severe hypertensive response to exercise with peak blood pressure 205/111 return to baseline during recovery 3. Nondiagnostic EKG changes with exercise return to baseline during recovery 4. No significant ischemia or infarction on SPECT images 5. Normal left ventricular size, ejection fraction 50% DIA HER MD Sep 21, 2021 15:35
== END ==
LOC: CARD 08:30
PROVIDERS: ATTEND Internal Medicine Cardiovascular Disease
DX: I10 Essential (primary) hypertension (principal); I25.10 Atherosclerotic heart disease of native coronary artery without angina pectoris
CPT/HCPCS: 78452; 93017

== ENCOUNTER 2021-12-21 05:32 | Outpatient (CLI) | payer MEDICAID ==
[~2021-12-21] VITALS: Ht 162.5 cm; Wt 87.5 kg
[~2021-12-21 05:32] MED LIST changes: -CATHETER FLUSH 10 ML SYR IVP PRN
[2021-12-21] MEDS ORDERED: LOSA25TA41 PO (13:52)
[2021-12-21] MEDS ORDERED: FAMO20TA3 PO (13:52)
== END 2021-12-21 13:56 ==
LOC: PREOP 05:32
PROVIDERS: ATTEND Surgery
DX: Z01.818 Encounter for other preprocedural examination (principal)

== ENCOUNTER 2021-12-28 07:31 | Day surgery (SDC) | payer MEDICAID ==
[~2021-12-28] VITALS: Ht 162.6 cm; Wt 87.5 kg
[2021-12-28] VITALS (12 sets, daily range): BP systolic 115–139; BP diastolic 59–98
[~2021-12-28 07:31] MED LIST changes: +FAMO20TA3 PO; +LOSA25TA41 PO
[2021-12-28] MEDS ORDERED: LIDOCAINE/EPI 2% 1:200,00 (XYLOCAINE) 10 ML VIAL ONE (07:43)
[2021-12-28] MEDS ORDERED: ONDANSETRON 4 MG/2 ML (SDV) Z0FRAN ONE ×2 (07:56→08:24)
[2021-12-28] MEDS ORDERED: ceFAZolin INJECTION 0 MG ONE (07:56)
[2021-12-28] MEDS ORDERED: ONDANSETRON 4 MG/2 ML (SDV) Z0FRAN IVP ONE (08:00)
[2021-12-28] MEDS ORDERED: ceFAZolin INJECTION 2,000 MG in NS (IVPB) 50 ML IV ONE (08:00)
--- NOTE | 2021-12-28 08:02 | Progress Note-Pre Operative ---
Pre-Operative Progress Note Date of Available H&P: Dec 20, 2021 Date H&P Reviewed: Dec 28, 2021 Time H&P Reviewed: 07:59 History & Physical: H&P Reviewed, Patient Examed, No changes noted Pre-Operative Diagnosis: cholelithiasis/cholecystitis JAYDEN HERNANDEZ DO Dec 28, 2021 08:02
[2021-12-28] MEDS ORDERED: MIDAZOLAM 2 MG/2 ML (VERSED) VIAL ONE ×2 (08:06→08:24)
[2021-12-28] MEDS ORDERED: MIDAZOLAM 2 MG/2 ML (VERSED) VIAL IVP ONE (08:15)
[2021-12-28] MEDS ORDERED: ONDANSETRON 4 MG/2 ML (SDV) Z0FRAN IV ONE (08:15)
[2021-12-28] MEDS: LACTATED RINGERS 1,000 ML IV PRN ×2 (08:17→09:33)
[2021-12-28] MEDS ORDERED: LIDOCAINE PF 2% 5 ML (XYLOCAINE) VIAL ONE (08:24)
[2021-12-28] MEDS ORDERED: fentaNYL INJ 100 MCG/2 ML AMP ONE (08:24)
[2021-12-28] MEDS ORDERED: ROCURONIUM 10 MG/ML 5 ML SYRINGE IV ONE (08:24)
[2021-12-28] MEDS ORDERED: proPOfol 200 MG/20 ML (DIPRIVAN) VIAL IV ONE (08:24)
[2021-12-28] MEDS ORDERED: GLYCOPYRROLATE 0.2 MG/ML (ROBINUL) 2 ML VIAL ONE (08:24)
[2021-12-28] MEDS ORDERED: NEOSTIGMINE (BLOXIVERZ ) 1 MG/1ML 10 ML VIAL ONE (08:41)
[2021-12-28] MEDS ORDERED: IOHEXOL 300 MG/ML 30 ML (OMNIPAQUE 300) VIAL INJ ONE (09:18)
[2021-12-28] MEDS ORDERED: ACHD5005 PO (09:44)
--- NOTE | 2021-12-28 09:44 | Progress Note-Post Operative ---
Post-Operative Progess Note Surgeon (s)/Sports Media (s) Surgeon JAYDEN HERNANDEZ DO Sports Media: Ezra Pre-Operative Diagnosis cholelithiasis/cholecystitis Post-Operative Diagnosis same plus adhesions Procedure & Operative Findings Date of Procedure 12/28/21 Procedure Performed/Findings PROCEDURE: Laparoscopic cholecystectomy with intraoperative cholangiogram. COMPLICATIONS: None. PROCEDURE: The patient was taken to the operating suite and was prepped and draped in sterile fashion. A surgical pause was performed. Just superior to the umbilicus, a 12 mm incision was made. Dissection was taken down to the fascia, which was then scored and grasped with a Belg[place] and the abdomen was then entered. A 0 Vicryl suture was placed in a [id number] fashion and a Carpenter trocar was placed and secured. Pneumoperitoneum was achieved. A 5mm trochar place in the subxyphoid and 2 in the right upper quadrant. The gallbladder was noted to have adesions to it; which were carefully taken down. Then grasped at the fundus and took in the superior direction, also grasped at Heaton's pouch and pulled in the infero-lateral direction. The cystic duct, and cystic artery were then dissected out. Clip was placed on the distal portion of the cystic duct which was then partially transected. An arrow catheter was inserted into the duct. The cholangiogram was then performed. No filing defects and contrast made its way into the duodenum. Catheter removed. Clips were placed on proximal portion of the cystic duct and then the duct was then transected. Clips were placed along the proximal and distal portion of the cystic artery which was then transected. Hook cautery was used to dissect the gallbladder from the gallbladder fossa achieving hemostasis. The gallbladder was placed in an Endobag and removed through the 12 mm trocar site. The abdomen was then reinspected. Copious amounts of irrigation were used to irrigate the abdomen and there were no signs of active bleeding. Hemostasis had been achieved. The 12 mm fascial defect was then closed with 0 Vicryl suture that had been placed in a [id number] fashion. The abdomen was then desufflated, the trocars were removed. The abdomen was then washed and dried. The skin was then closed using 4-0 Monocryl in a subcuticular fashion. The abdomen was washed and dried and Skin Affix was place over incisions. Patient tolerated the procedure well without any complications and was taken to the recovery room in stable condition. Dr. Munguia assisted on this case helping to make incisions, close incisions, identify anatomy and hold anatomy out of the way. Anesthesia Type GET Estimated Blood Loss Estimated blood loss (mL): scant Specimens/Packing Specimens Removed GB and contents JAYDEN HERNANDEZ DO Dec 28, 2021 09:44
--- NOTE | 2021-12-28 09:46 | Discharge Inst-Surgical ---
Discharge Inst-Surgical Depart Medication/Instructions New, Converted or Re-Newed RX: Transmitted to Pharmacy Patient Instructions Follow up Appt: Make appointment for 1 week. [phone] Instructions: No lifting greater than 20 pounds. No strenuous activity. May shower in 24 hours, no tub bath or soaking. Use incentive spirometer at home as directed. No Smoking Skin/Wound Care: May remove bandages in am. You need to leave the Dermabond on incision it will fall off on it's own. Symptoms to Report: Appetite Changes, Extremity Discoloration, Numbness/Tingling, Swelling Increased, Bleeding Excessive, Eyesight Changes, Pain Increased, Urine Color Change, Constipation(Persistent), Fever over 101 degree F, Pain/Pressure in chest, Urinating Difficulty, Cough Up/Vomit Blood, Heart Beat Irreg/Pounding, Pain/Pressure in jaw, Cramps in feet or legs, Lightheadedness, Pain/Pressure in shoulder, Diarrhea(Persistent), Memory Changes Suddenly, Questions/Concerns, Weight gain consecutive days, Dizziness/Fainting, Nausea/Vomiting, Shortness of Breath, Weight gain over 2 pounds If questions or concerns contact your physician Or seek help at emergency department. Activity Activity as Tolerated: Yes Activity Instructions: Avoid Stress to Incision Driving Instructions: No Driving/Refer to Dr. Gibson Discharge Diet: Avoid Fatty Foods, Low Fat/Low Cholesterol If Any Problems/Questions/Issu: Contact Your Physician, Go to Emergency Room Skin/Wound Care Infection Signs and Symptoms: Increased Redness, Foul Odor of Wound, Increased Drainage, Skin Itchy or Has a Rash, Increased Swelling, Temperature Above 101 F Wound Care Comment: heating pad to shoulder or neck for pain Bathing Instructions: Shower Stitches/Crystal/Dermabond Dis: Dermabond Ice Pack: Ice On and Off Site JAYDEN HERNANDEZ DO Dec 28, 2021 09:46
[2021-12-28] MEDS ORDERED: SEVOFLURANE (ULTANE) 15 ML INHAL SOLN ONE (10:05)
[2021-12-28] MEDS ORDERED: morphine INJ 10 MG/ML 1ML (SYR OR VIAL) IVP ONE (10:15)
[2021-12-28] MEDS ORDERED: HYDROmorphone 2 MG/ML VIAL (DILAUDID) IV ONE (10:15)
[2021-12-28] MEDS ORDERED: ONDANSETRON 4 MG/2 ML (SDV) Z0FRAN IVP PRN (10:15)
[2021-12-28] MEDS ORDERED: HYDROcodone/APAP 5 MG/325 MG (LORTAB) TAB ONE (10:56)
[2021-12-28] MEDS ORDERED: HYDROcodone/APAP 5 MG/325 MG (LORTAB) TAB PO ONE (11:15)
--- NOTE | 2021-12-28 15:59 | Diagnostic Imaging Report ---
INDICATION: Fluoroscopy during intraoperative cholangiogram. Fluoroscopy was provided in the OR during intraoperative cholangiogram. 11 seconds of fluoroscopic time was utilized. 62 images were obtained demonstrating contrast being injected via the cystic duct remnant. Extrahepatic bile duct is normal caliber. There is free flow of contrast into the duodenum. No filling defects are seen to suggest retained stone. IMPRESSION: Fluoroscopy during intraoperative cholangiogram. Dictated by: Dictated on workstation # [id number]
== END 2021-12-28 11:55 | disposition home or self-care (01) ==
LOC: SDC 07:31
PROVIDERS: ATTEND Surgery
DX: K80.10 Calculus of gallbladder with chronic cholecystitis without obstruction (principal); Z28.310 Unvaccinated for COVID-19; F17.210 Nicotine dependence, cigarettes, uncomplicated; E66.9 Obesity, unspecified; Z68.33 Body mass index [BMI] 33.0-33.9, adult; Z79.899 Other long term (current) drug therapy
CPT/HCPCS: 76000; 87081; 88304